=== PATIENT | male | born 1945 | race Two or more races ===

== ENCOUNTER → 2017-02-04 | Outpatient (RCR) | payer OTHER | END | disposition home or self-care (01) | LOC: PTY 16:00 | DX: M54.41 Lumbago with sciatica, right side (principal); G89.29 Other chronic pain ==

== ENCOUNTER 2017-02-25 14:45 | Outpatient (RCR) | payer OTHER | END 2017-03-06 | disposition home or self-care (01) | LOC: PTY 14:45 | DX: M54.41 Lumbago with sciatica, right side (principal); G89.29 Other chronic pain; Z96.659 Presence of unspecified artificial knee joint ==